=== PATIENT | female | born 1985 | race Caucasian/White ===

== ENCOUNTER 2017-09-30 13:34 | Emergency (ER) | payer BC ==
[~2017-09-30] VITALS: Ht 157.5 cm; Wt 79.1 kg
[~2017-09-30 13:34] MED LIST: BCP TD; CEFACLOR250 MG PO; CELEBREX; CEPHALEXIN250 M1 PO; IRON325 M2 PO; MOTRIN 600600 MG/TAB PO; PERCOCET 325 MG1 TA2 PO; PRENATAL1 TA1 PO; STOOL SOFTENER100 M2 PO
[2017-09-30 13:35] VITALS: TEMP 99.4
[2017-09-30 14:18] LABS: INFLUENZA A NEGATIVE; INFLUENZA B NEGATIVE
[2017-09-30 15:02] LABS: BASO % 0.2 % (0.0-2.0); EOS % 0.1 % (0-4.0); LYMPH # 0.9 (1.2-3.4); LYMPH % 8.9 % (20.0-51.0); MEAN CELL VOLUME 97 fl (80.0-100.0); MEAN CORPUSCULAR HGB CONC 33 g/dl (33.0-37.0); MEAN PLATELET VOLUME 10.5 fl (7.4-10.4); MONO % 9.7 % (1.7-9.3); PLATELET COUNT 114 K/mm3 (130-400); RED BLOOD COUNT 3.69 M/mm3 (4.10-5.30); REDCELL DISTRIBUTION WIDTH-CV 12.6 % (11.5-14.5)
[2017-09-30 15:08] LABS: ALBUMIN 3.4 gm/dL (3.5-5.0); BILIRUBIN,TOTAL 0.9 mg/dL (0.0-1.0); C-REACTIVE PROTEIN 5.3 mg/dL (0.0-0.9); CALCIUM 8.6 mg/dL (8.4-10.2); CREATININE, serum 0.56 mg/dL (0.52-1.25); POTASSIUM 3.3 mmol/L (3.4-5.0); TOTAL PROTEIN 6.3 gm/dL (6.4-8.2)
[2017-09-30 15:14] LABS: HEMATOCRIT 35.6 % (37.0-47.0); HEMOGLOBIN 11.8 g/dl (12.5-16.0); MEAN CORPUSCULAR HEMOGLOBIN 32 pg (27.0-31.0)
[2017-09-30 16:46] LABS: COLLECTION METHOD CLEAN CATCH
[2017-09-30 16:53] LABS: MUCOUS Present /lpf; PH 6 (5-8); URINE APPEARANCE Clear; URINE BACTERIA Occasional /hpf; URINE BILIRUBIN Negative (NEGATIVE); URINE BLOOD Negative (NEGATIVE); URINE COLOR Straw; URINE GLUCOSE Negative (NEGATIVE); URINE KETONE 2+ (NEGATIVE); URINE LEUKOCYTE ESTERASE Trace (NEGATIVE); URINE NITRATE Negative (NEGATIVE); URINE PROTEIN(semi-quant) Negative (NEGATIVE); URINE RBC 0-2 /hpf; URINE UROBILINOGEN Negative (NEGATIVE)
[2017-09-30] MEDS ORDERED: TAMIFLU 75MG75 MG PO (17:16)
[2017-09-30] MEDS ORDERED: NORCO 325 MG-51 TAB PO (17:16)
[2017-09-30 18:43] VITALS: BP 112/68; PULSE 128
== END 2017-09-30 18:44 | disposition home or self-care (01) ==
LOC: COL.ER 13:34
PROVIDERS: Nurse Practitioner
DX: O99.512 Diseases of the respiratory system complicating pregnancy, second trimester (principal); J11.1 Influenza due to unidentified influenza virus with other respiratory manifestations; Z3A.27 27 weeks gestation of pregnancy
CPT/HCPCS: J2270; J7030

== ENCOUNTER → 2017-11-06 | Outpatient (CLI) | payer BC ==
[~2017-11-06] MED LIST changes: +NORCO 325 MG-51 TAB PO; +TAMIFLU 75MG75 MG PO
== END ==
LOC: SUN.DIA 12:53
DX: E11.9 Type 2 diabetes mellitus without complications (principal); Z71.3 Dietary counseling and surveillance
CPT/HCPCS: G0108

== ENCOUNTER 2017-12-25 15:50 | Inpatient (IN) | payer BC ==
[~2017-12-25] VITALS: Ht 157.5 cm; Wt 80.0 kg
[2017-12-25] VITALS (30 sets, daily range): BP systolic 96–122; BP diastolic 52–80; PULSE 77–104; TEMP 98.2–98.6
[2017-12-25] MEDS ORDERED: ZOVIRAX 200MG200 MG PO (16:07)
[2017-12-25 17:22] LABS: BASO % 0.2 % (0.0-2.0); EOS % 0.3 % (0-4.0); GRAN # 7.4 (1.4-6.5); GRAN % 69.9 % (42.2-75.2); LYMPH # 2.3 (1.2-3.4); LYMPH % 21.4 % (20.0-51.0); MEAN CELL VOLUME 90 fl (80.0-100.0); MEAN CORPUSCULAR HGB CONC 33 g/dl (33.0-37.0); MEAN PLATELET VOLUME 11.8 fl (7.4-10.4); MONO # 0.8 (0.1-0.6); MONO % 7.6 % (1.7-9.3); PLATELET COUNT 161 K/mm3 (130-400); RED BLOOD COUNT 3.86 M/mm3 (4.10-5.30); REDCELL DISTRIBUTION WIDTH-CV 13.1 % (11.5-14.5)
[2017-12-25 17:30] LABS: HEMATOCRIT 34.7 % (37.0-47.0); HEMOGLOBIN 11.3 g/dl (12.5-16.0); MEAN CORPUSCULAR HEMOGLOBIN 29 pg (27.0-31.0)
[2017-12-26] VITALS (10 sets, daily range): BP systolic 102–121; BP diastolic 56–79; PULSE 77–103; TEMP 97.8–98.9
[2017-12-27] MEDS ORDERED: IBU600 MG PO (07:35)
[2017-12-27] MEDS ORDERED: PERCOCET 325 MG1 TA2 PO (07:36)
[2017-12-27 08:07] VITALS: BP 116/68; PULSE 83; TEMP 98
== END 2017-12-27 11:35 | disposition home or self-care (01) | DRG 767 ==
LOC: LDRO 15:50 → OB 16:08 → LDR 16:08 → OB 12-26 01:40
PROVIDERS: Student in an Organized Health Care Education/Training Program
PROC: 10E0XZZ Delivery of Products of Conception, External Approach (ICD-10-PCS; principal; 2017-12-25)
PROC: 10D17Z9 Manual Extraction of Products of Conception, Retained, Via Natural or Artificial Opening (ICD-10-PCS; 2017-12-25)
DX: O24.420 Gestational diabetes mellitus in childbirth, diet controlled (principal); O73.1 Retained portions of placenta and membranes, without hemorrhage; Z3A.38 38 weeks gestation of pregnancy; Z37.0 Single live birth
CPT/HCPCS: J2590; J2795; J7120